=== PATIENT | male | born 1955 | race Caucasian/White ===

== ENCOUNTER → 2017-03-05 | Day surgery (SDC) | payer BC ==
[~2017-03-05] MED LIST: Lactated Ringers 1,000 ML IV SCH; Propofol 200 MG/20 ML SDV IV ONE
--- NOTE | 2017-03-08 08:39 | OR ---
DATE OF OPERATION: 03/05/2017 PREOPERATIVE DIAGNOSIS: SCREENING COLONOSCOPY. POSTOPERATIVE DIAGNOSIS: SCREENING COLONOSCOPY. SURGEON: Tristan Leon MD PROCEDURE: FULL-LENGTH COLONOSCOPY. 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 COMPLICATIONS: None. SPECIMEN: None. FINDINGS: Normal full-length colonoscopy with minimal sigmoid diverticulosis. RECOMMENDATIONS: Follow up colonoscopy every 10 years. INDICATIONS: The patient was in for routine physical. He is due for a routine colonoscopy and he agrees to proceed. DESCRIPTION OF PROCEDURE: The patient was prepped and draped, placed in the left lateral decubitus position. A lubricated Olympus colonoscope was inserted and easily advanced to the cecum. Direct visualization of the ileocecal valve and appendiceal orifice were accomplished. The bowel prep was adequate. Upon withdrawal of the scope throughout the length of the colon, I found no signs of any polyps, masses, ulcerations, or bleeding sites. No vascular abnormalities or signs of colitis. There were a few scattered diverticula in the sigmoid area, but very minimal. The rectal vault was benign. Retroflexion scope in the rectum showed no anal lesions. Air was then suctioned. Scope was removed without complication. LILLIANA/EDISON /[id number]
== END ==
LOC: CC.SDS 07:44
PROVIDERS: ATTEND Family Medicine
DX: Z12.11 Encounter for screening for malignant neoplasm of colon (principal); K57.30 Diverticulosis of large intestine without perforation or abscess without bleeding; I10 Essential (primary) hypertension; N40.0 Benign prostatic hyperplasia without lower urinary tract symptoms; F32.9 Major depressive disorder, single episode, unspecified; K21.9 Gastro-esophageal reflux disease without esophagitis; E78.00 Pure hypercholesterolemia, unspecified; G47.30 Sleep apnea, unspecified; E11.9 Type 2 diabetes mellitus without complications; E03.9 Hypothyroidism, unspecified; Z88.0 Allergy status to penicillin; Z79.84 Long term (current) use of oral hypoglycemic drugs; Z79.899 Other long term (current) drug therapy; Z98.52 Vasectomy status
CPT/HCPCS: 45378; 82962; J2704; J7120

== ENCOUNTER → 2019-09-14 | Day surgery (SDC) | payer BC, OTHER ==
[2019-09-14] MEDS: Lactated Ringers 1,000 ML IV SCH (07:37)
[2019-09-14] MEDS: Benzocaine 20% Oral Spray 59.2 ML Canister MUCMEM ONE (08:44)
[2019-09-14] MEDS: Midazolam 1 MG/ML 2 ML SDV IV ONE ×2 (08:48→08:50)
--- NOTE | 2019-09-14 15:42 | OR ---
DATE OF OPERATION: 09/14/2019 PREOPERATIVE DIAGNOSIS: DYSPHAGIA. POSTOPERATIVE DIAGNOSIS: DYSPHAGIA. SURGEON: Ever Dean MD PROCEDURE: ESOPHAGOGASTRODUODENOSCOPY WITH DUODENAL BIOPSY X2 AND DISTAL ESOPHAGEAL BIOPSY X2. ANESTHESIA: Conscious sedation with IV Versed. SPECIMEN: Duodenal biopsy and distal esophageal biopsy. FINDINGS: Some mild duodenitis and a 2 to 3 cm hiatal hernia with some distal esophageal erosion. There was also a biopsy for H. pylori. RECOMMENDATIONS: Based on pathology. INDICATIONS: This 63-year-old male has reflux, GERD symptoms, and mostly what bothers him is dysphagia. He feels like something seems to be caught in the upper portion of the throat down to the mid chest area, mainly occurs with solid foods. DESCRIPTION OF PROCEDURE: After adequate preparation, a gastroscope was inserted into the esophagus. This was passed down to the distal esophagus. He does have a hiatal hernia with distal esophageal erosion. Photograph of this was taken. Two biopsies of the lesion were also taken. The scope was advanced into the stomach. Both forward and retroflexed views were done and are normal. An H. pylori biopsy in the pre-pyloric antrum was taken. The scope was advanced through the pylorus into the duodenum. Photograph of the duodenum was taken and also 2 biopsies of what appears to be mild duodenitis. No discrete masses, ulcers, or bleeding sites were noted. Air was suctioned from the stomach and the scope removed. QING/EDISON /[id number]
== END ==
LOC: CC.SDS 07:20
PROVIDERS: ATTEND Surgery
DX: K21.0 Gastro-esophageal reflux disease with esophagitis (principal); K22.10 Ulcer of esophagus without bleeding; K29.80 Duodenitis without bleeding; K44.9 Diaphragmatic hernia without obstruction or gangrene; K31.89 Other diseases of stomach and duodenum; E11.9 Type 2 diabetes mellitus without complications; I10 Essential (primary) hypertension; E78.5 Hyperlipidemia, unspecified; E78.00 Pure hypercholesterolemia, unspecified; G47.30 Sleep apnea, unspecified; E03.9 Hypothyroidism, unspecified; Z88.0 Allergy status to penicillin; Z79.84 Long term (current) use of oral hypoglycemic drugs; Z79.890 Hormone replacement therapy; Z79.899 Other long term (current) drug therapy
CPT/HCPCS: 43239; 87081; J2250; J7120

== ENCOUNTER → 2020-08-16 | Day surgery (SDC) | payer MEDICARE, OTHER ==
[~2020-08-16] MED LIST changes: +Lactated Ringers 1,000 ML IV ONE; -Lactated Ringers 1,000 ML IV SCH; -Propofol 200 MG/20 ML SDV IV ONE
[2020-08-16] MEDS: Lactated Ringers 1,000 ML IV ONE (07:28)
--- NOTE | 2020-08-16 10:12 | OR ---
DATE OF OPERATION: 08/16/2020 PREOPERATIVE DIAGNOSIS: 1. EPIGASTRIC PAIN. 2. PERSISTENT DIARRHEA. POSTOPERATIVE DIAGNOSIS: 1. EPIGASTRIC PAIN. 2. PERSISTENT DIARRHEA. SURGEON: Tristan Leon MD PROCEDURE: 1. DIAGNOSTIC ESOPHAGOGASTRODUODENOSCOPY WITH BIOPSIES X5, VIVI. 2. DIAGNOSTIC COLONOSCOPY WITH RANDOM BIOPSIES X5. ANESTHESIA: MAC. COMPLICATIONS: None. SPECIMEN: 1. Duodenal bulb biopsy x3. 2. Antral biopsy x1. 3. Distal esophageal biopsy x1. 4. Antral VIVI. 5. Random colon biopsies from cecum to rectum x5. FINDINGS: 1. Full-length diagnostic EGD. 2. 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 3. Minimal antral gastritis. 4. Minimal reflux esophagitis. 5. Full-length colonoscopy. 6. Random colon biopsies x5 without any identifiable etiology of patient's diarrhea. RECOMMENDATIONS: Followup pending pathology reports. INDICATIONS: Mr. Stallworth has been having some ongoing issues with diarrhea and some diffuse abdominal pain, most prevalent in the left upper quadrant epigastrium. We elected to proceed with diagnostic endoscopies. DESCRIPTION OF PROCEDURE: The patient was prepped and draped, placed in the left lateral decubitus position. A lubricated Olympus gastroscope was inserted over a bit, advanced to cricopharyngeus area, and easily intubated into the esophagus. Esophageal lining was benign until its most distal portion. The Z- line was crisp and sharp at 40 cm. No hernia seen. There was no spontaneous reflux seen, but the patient does have a small amount of grade 1 reflux esophagitis without any ulceration, erosion, or stricturing. We did a biopsy of that. The scope was advanced into the stomach, through the pylorus, and into the second portion of the duodenum. The second portion of duodenum appeared benign and duodenal bulb had a significant amount of what appeared to be heterotopic gastric tissue with some inflammation present. We did 3 biopsies. This did not extend past the polyps, so I do not believe this was a follicular lymphoma, but it was very bulky. The scope was brought back into the stomach and retroflexed. The upper fundus and cardia were benign. Upon straightening, the rest of the fundus was unremarkable. The antrum does show a very small area of a gastritis without any active ulceration. There was 1 small erosion that looks healed. We did do a biopsy of this along with a CLOtest. Air was then suctioned from the stomach, and the scope was removed without complication. A lubricated Olympus colonoscope was then inserted and safely and easily advanced to the cecum. Direct visualization of the ileocecal valve and appendiceal orifice was accomplished. The bowel prep was excellent. Upon withdrawal of the scope throughout the entire length of the colon, I could find no signs of any polyps, masses, ulceration, or bleeding sites. There were no vascular abnormalities or gross signs of colitis. No significant diverticula. The rectal vault appeared benign. Retroflexion showed no anal lesions. We did do random biopsies from the cecum to the rectum x5. Brief intubation into the terminal ileum was benign. Air was suctioned from the colon, and the scope was removed without complications. LILLIANA/EDISON /[id number]
== END ==
LOC: CC.SDS 07:14
PROVIDERS: ATTEND Family Medicine
DX: K52.832 Lymphocytic colitis (principal); C82.93 Follicular lymphoma, unspecified, intra-abdominal lymph nodes; K21.9 Gastro-esophageal reflux disease without esophagitis; K29.70 Gastritis, unspecified, without bleeding; K20.0 Eosinophilic esophagitis; N40.0 Benign prostatic hyperplasia without lower urinary tract symptoms; G89.29 Other chronic pain; E78.00 Pure hypercholesterolemia, unspecified; E03.9 Hypothyroidism, unspecified; E11.9 Type 2 diabetes mellitus without complications; G47.33 Obstructive sleep apnea (adult) (pediatric); D72.820 Lymphocytosis (symptomatic); Z87.19 Personal history of other diseases of the digestive system; Z88.0 Allergy status to penicillin; Z79.899 Other long term (current) drug therapy; Z79.890 Hormone replacement therapy; Z98.890 Other specified postprocedural states
CPT/HCPCS: 43239; 45380; 87081; J7120; 00813; 88305

== ENCOUNTER 2024-01-05 09:41 | Emergency (ER) | payer MEDICARE, OTHER ==
[2024-01-05] MEDS: Diphtheria,Pertussis(Acell),Tetanus Vaccine 0.5 ML Syringe IM ONE (10:11)
[2024-01-05] MEDS: Lidocaine 1% with EPINEPHrine 1:100,000 10 ML MDV INJECT ONE (10:12)
[2024-01-05] MEDS: Bacitracin/Neomycin/Polymyxin B Oint 0.9 GM U/D Packet TOP ONE (10:29)
== END 2024-01-05 10:46 | disposition home or self-care (01) ==
LOC: CC.ED 09:41
DX: S51.012A Laceration without foreign body of left elbow, initial encounter (principal); E11.9 Type 2 diabetes mellitus without complications; E03.9 Hypothyroidism, unspecified; Z23 Encounter for immunization; Z79.84 Long term (current) use of oral hypoglycemic drugs; Z79.4 Long term (current) use of insulin; Z79.899 Other long term (current) drug therapy; Z88.0 Allergy status to penicillin; W20.8XXA Other cause of strike by thrown, projected or falling object, initial encounter; Y93.H9 Activity, other involving exterior property and land maintenance, building and construction
CPT/HCPCS: 12002; 90471; 90715; 99282; A9270; J3490

== ENCOUNTER 2025-04-13 06:55 | Day surgery (SDC) | payer MEDICARE, OTHER ==
[2025-04-13] MEDS: Lactated Ringers 1,000 ML IV SCH (07:11)
[2025-04-13] MEDS ORDERED: fentaNYL 50 MCG/ML SDV ONE (07:27)
[2025-04-13] MEDS ORDERED: Flumazenil 0.1 MG/ML 5 ML MDV ONE (07:27)
[2025-04-13] MEDS ORDERED: Midazolam 1 MG/ML 2 ML SDV ONE (07:27)
[2025-04-13] MEDS ORDERED: Ketamine 200 MG/20 ML MDV ONE (07:27)
[2025-04-13] MEDS ORDERED: Propofol 200 MG/20 ML SDV ONE (07:27)
== END 2025-04-13 08:40 | disposition home or self-care (01) ==
LOC: CC.SDS 06:55
PROVIDERS: ATTEND Family Medicine
DX: K62.89 Other specified diseases of anus and rectum (principal); K92.1 Melena; I10 Essential (primary) hypertension; E11.9 Type 2 diabetes mellitus without complications; Z79.84 Long term (current) use of oral hypoglycemic drugs; Z79.899 Other long term (current) drug therapy
CPT/HCPCS: J2250; J2704; J3010; J3490; J7120